=== PATIENT | female | born 1970 | race Asian ===

== ENCOUNTER 2020-08-12 08:57 | Day surgery (SDC) | payer OTHER ==
[2020-08-09 14:49] VITALS: BMI 18.8
[2020-08-12] MEDS ORDERED: PROPOFOL 20 ML ONE ×3 (10:13)
[2020-08-12 11:13] VITALS: TEMP 97.9
[2020-08-12 11:32] VITALS: BP 118/73; PULSE 73
== END 2020-08-12 12:00 | disposition home or self-care (01) ==
LOC: FASU-ENDO 08:57
PROVIDERS: ATTEND Internal Medicine Gastroenterology
PROC: 0DJD8ZZ Inspection of Lower Intestinal Tract, Via Natural or Artificial Opening Endoscopic (ICD-10-PCS; principal; 2020-08-12 10:33)
DX: Z12.11 Encounter for screening for malignant neoplasm of colon (principal)
CPT/HCPCS: 84703